=== PATIENT | female | born 1980 | race Caucasian/White ===

== ENCOUNTER 2018-07-30 05:54 | Day surgery (SDC) | payer OTHER ==
[~2018-07-30] VITALS: Ht 170.2 cm; Wt 72.1 kg
--- NOTE | ~2018-07-30 | O ---
[facility] [place] [address] OPERATIVE REPORT Name: ISABELA LINDSEY Room #: 150-1 [facility]..#: [id number] Admission: 07/30/18 Attend Phys: Guille Lambert MD Discharge: Date of : 84 Report #: [id number] THIS REPORT FOR: //name// CC: Guille Workman DATE OF SERVICE: 07/30/2018 PREOPERATIVE DIAGNOSIS: Turbinate hypertrophy. POSTOPERATIVE DIAGNOSIS: Turbinate hypertrophy. PROCEDURE: Submucous resection of turbinates with outfracturing. SURGEON: Guille Lambert M.D. ANESTHESIA: General LMA. INDICATION: The patient has a history of nasal airway obstruction, noted great improvement in her symptomatology with Afrin, so she was offered the option of turbinate reduction surgery. We had previously discussed septal surgery and tip surgery for other concerns. She does not want addressed at this time. TECHNIQUE: After obtaining consent, she was brought to the operating suite, appropriate time out was performed. General anesthesia was obtained by Anesthesia. The bed was turned 90 degrees. Nose was prepped and draped in usual sterile fashion. Cottonoids with Afrin was placed in each side of the nares. A 3 mL of 1% Xylocaine and 1:100,000 epinephrine was injected on the medial surface of each inferior turbinate. Using a caudal elevator, a small incision was made in the anterior tip of the inferior turbinate on the left side. Submucosal flap was created on the medial and medial inferior surface on the anterior-half of the inferior turbinate. Microdebrider blade was then used to reduce the submucous component in the same area. I also trimmed off the medial edge of the inferior turbinate externally. The turbinate was then outfractured with the [place] elevator. A cottonoid was placed in the nares for hemostasis. Attention was turned to the right turbinate where a similar procedure was performed. It was noted preoperatively and during this case that the patient has a posterior right septal spur as well as the deviation on the left side of the septum. Cottonoids were removed. Hemostasis found to be adequate. Pieces of MeroGel were trimmed and placed between the turbinate and the septum to prevent any synechia and to allow for lateralization of the turbinates during the healing phase. Having completed surgery, she was turned back over to Anesthesia to be awakened and taken to recovery room in stable condition. [address] [address] OPERATIVE REPORT Name: ROSALIAISABELA Room #: 150-1 [facility]#: [id number] Admission: 07/30/18 Attend Phys: Guille Lambert MD Discharge: Date of : 84 Report #: [id number] ESTIMATED BLOOD LOSS: Less than 3 mL. By: [id number] Guille Lambert MD /nt
[~2018-07-30 05:54] MED LIST: APAP500; COLACE 100 MG100 MG; DERMOPLAST SPRA56 ML; IBUPROFEN 200200 M1 PO; IBUPROFEN 800800 M1; IROSPAN 24/6 T1 EACH; LANOLIN56 GM; LOCOID 0.1% CRE15 GM; PRENATAL PO; TUCKS1 EAC1; VALTREX 500 MG500 M1 PER TUBE; ZANTAC 150MG T150 M1 PO
[2018-07-30 07:20] VITALS: BP 99/65
[2018-07-30 08:36] VITALS: BP 99/65
== END 2018-07-30 09:23 | disposition home or self-care (01) ==
LOC: OR 05:54 → TBA 05:55 → OR 06:47
DX: J34.3 Hypertrophy of nasal turbinates (principal); Z98.890 Other specified postprocedural states; Z79.899 Other long term (current) drug therapy; Z87.891 Personal history of nicotine dependence
CPT/HCPCS: 50010; 50101